=== PATIENT | male | born 1975 | race Caucasian/White ===

== ENCOUNTER 2020-04-26 20:30 | Emergency (ER) | payer OTHER ==
[2020-04-26] MEDS ORDERED: predniSONE 20 MG TABLET (UD) PO ONE (20:38)
[2020-04-26 20:46] VITALS: BP 122/80; PULSE 73; TEMP 98.2; BMI 28.8
--- NOTE | 2020-04-26 21:08 | PDOC ---
Documentation entered by Cindy Fam SCRIBE, acting as scribe for Paul Kraus MD. Paul Kraus MD: This documentation has been prepared by the Sarwat choudhury Xhesika, SCRIBE, under my direction and personally reviewed by me in its entirety. I confirm that the documentation accurately reflects all work, treatment, procedures, and medical decision making performed by me. History of Present Illness - General Chief Complaint: Pain Stated Complaint: "I have shoulder Pain" Time Seen by Provider: 04/26/20 20:38 History Source: Patient Exam Limitations: No Limitations - History of Present Illness Initial Comments: 04/26/20 20:39 HPI The patient is a 45 year old male, with no significant PMH who presents to the emergency department with several months of L shoulder pain. The patient states his pain is worse in the morning and with movements. Pt states he usually takes Motrin once in a while with no relief of symptoms. Pt states he endorses limited ROM due to the pain. Pt denies seeing an orthopedist. PAST MEDICAL HISTORY: no significant history PAST SURGICAL HISTORY: no significant history FAMILY HISTORY: no pertinent history SOCIAL HISTORY: Pt lives with family and is employed. MEDICATIONS: reviewed ALLERGIES: As per nursing notes ROS General: No fevers or chills, no weakness, no weight loss HEENT: No change in vision. No sore throat,. No ear pain CardioVascular: No chest pain or shortness of breath Respiratory:No cough, or wheezing. Gastrointestinal: no nausea, vomiting, diarrhea or constipation, No rectal bleeding Genitourinary: No dysuria, hematuria, or frequency Musculoskeletal: +L shoulder pain Neurologic: No headache, vertigo, dizziness or loss of consciousness Psychiatric: nor depression Skin: No rashes or easy bruising Endocrine: no increased thirst or abnormal weight change Allergic: no skin or latex allergy All other systems reviewed and normal PE GENERAL: The patient is awake, alert, and fully oriented, in no acute distress. HEAD: Normal with no signs of trauma. EYES: Pupils equal, round and reactive to light, extraocular movements intact, sclera anicteric, conjunctiva clear. EXTREMITIES: + pain on palpation to L anterior shoulder/ rotator cuff. +Pain to palpation on acromial bursa. +decreased ROM secondary to abduction. neurovascular intact NEUROLOGICAL: Normal speech, normal gait. PSYCH: Normal mood, normal affect. SKIN: Warm, Dry, normal turgor, no rashes or lesions noted. 04/26/20 21:09 Assessment and plan: This is a 45-year-old male who is had approximately 2 months of left shoulder pain. Patient said pain is worse when he tries to use the shoulder or in the morning. Patient has not seen anybody or had anything done for the pain. Patient has tenderness on palpation of the rotator cuff but no bony tenderness. Patient was given some prednisone and referred to an orthopedist for further evaluation and MRI and possible repair of a rotator cuff injury. Past History - Medical History Allergies/Adverse Reactions: Allergies Allergy/AdvReac Type Severity Reaction Status Date / Time No Known Allergies Allergy Unverified 04/26/20 20:50 Home Medications: Ambulatory Orders NK [No Known Home Medication] 04/26/20 Discharge - Discharge Information Problems reviewed: Yes Clinical Impression/Diagnosis: Left anterior shoulder pain Condition: Stable Disposition: HOME - Admission No - Follow up/Referral Referrals: Nghia Knight MD [Staff Physician] - - Patient Discharge Instructions Additional Instructions: For the pain take naproxen 1 tablet twice a day. Follow-up with the orthopedist call them in the morning for an appointment tell them you are in the ER and we referred you. Return to the emergency department immediately with ANY new, persistent or worsening symptoms. Continue any medications as previously prescribed by your physician. You should follow up with your primary doctor as soon as possible regarding today's emergency department visit. . Please make sure your doctor reviews the results of your emergency evaluation. Thank you for coming to the Emergency Department today for your care. It was a pleasure to see you today. Please note that your evaluation is INCOMPLETE until you follow-up with your doctor. - Post Discharge Activity
== END 2020-04-26 21:12 | disposition home or self-care (01) ==
LOC: FER 20:30
DX: M25.512 Pain in left shoulder (principal)
CPT/HCPCS: 99283-25